=== PATIENT | female | born 1985 | race Two or more races ===

== ENCOUNTER 2019-01-20 14:44 | Emergency (ER) | payer BC ==
[2019-01-20] MEDS ORDERED: Clindamycin HCl 150 MG Cap PO ONE (14:45)
[2019-01-20 15:57] VITALS: BP 140/77; PULSE 90
--- NOTE | 2019-01-20 16:59 | EDM.PDOC ---
<Apolonia Fernandes - Last Filed: 01/20/19 18:29> ED HPI GENERAL MEDICAL PROBLEM - General Chief Complaint: Skin Complaint Stated Complaint: STAFF INFECTION NOT GOING AWAY Time Seen by Provider: 01/20/19 16:57 - Related Data Allergies Allergy/AdvReac Type Severity Reaction Status Date / Time amoxicillin Allergy Diarrhea Verified 01/20/19 15:44 latex Allergy Rash Verified 11/15/13 17:01 Home Meds: Home Meds Albuterol [Ventolin HFA] 2 puff INH Q4H PRN 09/03/13 [History] Acetaminophen [Tylenol Extra Strength] 1,000 mg PO Q8H PRN 11/15/13 [History] buPROPion [buPROPion XL] 150 mg PO DAILY 01/20/19 [History] buPROPion [buPROPion XL] 300 mg PO BEDTIME 01/20/19 [History] ED ROS GENERAL - Review of Systems Review Of Systems: ROS reveals no pertinent complaints other than HPI. ED EXAM, SKIN/RASH Exam: See Below Exam Limited By: No Limitations General Appearance: Alert, No Apparent Distress Skin: Rash (erythematous rash below the right ear and over the chest, both have areas of a previous boil that has been drained. There are some surrounding vesicles. ) Course - Vital Signs Last Recorded V/S: Last Vital Signs Temp 99.2 F 01/20/19 15:38 Pulse 90 01/20/19 15:38 Resp 18 01/20/19 15:38 BP 140/77 01/20/19 15:38 Pulse Ox 99 01/20/19 15:38 - Orders/Labs/Meds Orders: Active Orders 24 hr Category Date Time Status Peripheral IV Care [RC] . DIRECTED Care 01/20/19 18:26 Active Peripheral IV Insertion Adult [OM.PC] Stat Oth 01/20/19 18:26 Ordered Meds: Medications Discontinued Medications Generic Name Dose Route Start Last Admin Trade Name Freq PRN Reason Stop Dose Admin Clindamycin HCl Confirm 01/20/19 17:19 01/20/19 18:34 Cleocin Administered 01/20/19 17:20 Not Given Dose 600 mg .ROUTE .STK-MED ONE Clindamycin Phosphate 900 mg/ 106 mls @ 200 mls/hr 01/20/19 17:10 01/20/19 17 :40 Sodium Chloride IV 01/20/19 17:41 200 mls/hr ONETIME ONE Administration Sodium Chloride 10 ml 01/20/19 18:26 01/20/19 18:34 Saline Flush FLUSH 10 ml ASDIRECTED PRN Administration Keep Vein Open Departure - Departure Time of Disposition: 18:29 Disposition: Home, Self-Care 01 Condition: Fair Clinical Impression: Skin infection, bacterial - Discharge Information *PRESCRIPTION DRUG MONITORING PROGRAM REVIEWED*: Not Applicable *COPY OF PRESCRIPTION DRUG MONITORING REPORT IN PATIENT DANIELLE: Not Applicable Instructions: Antibiotic Medicine, Adult, [id number] Referrals: PCP,None [Ordering Only Provider] - Forms: ED Department Discharge Additional Instructions: Take clindamycin 300mg Take benadryl 25mg at bedtime for itching. May take zyrtec during the day for itching as it does not cause drowsiness. Apply mupirocin ointment to areas of infection, inside of the nostrils and also under finger nails. - My Orders Last 24 Hours: My Active Orders 01/20/19 18:26 Peripheral IV Care [RC] . DIRECTED Peripheral IV Insertion Adult [OM.PC] Stat - Assessment/Plan Last 24 Hours: My Active Orders 01/20/19 18:26 Peripheral IV Care [RC] . DIRECTED Peripheral IV Insertion Adult [OM.PC] Stat Assessment:: Assessment and Plan: Staph infection of the skin - Patient had her boils incised and drained by her PCP in clinic and culture yielded staph infection susceptible to Clindamycin and Doxycycline. - She was given Bactrim in clinic and believes the redness around the rash is getting worse. Discontinue bactrim. - She will receive IV Clindamycin 900mg Once in ED. - She will be sent home with PO Clindamycin 300mg daily. - She will also have a prescription for mupirocin to apply in nares and under the nails. <Perez Lainez - Last Filed: 01/20/19 18:57> ED HPI GENERAL MEDICAL PROBLEM - General Source of Information: Reports: Patient, RN, RN Notes Reviewed History Limitations: Reports: No Limitations - History of Present Illness INITIAL COMMENTS - FREE TEXT/NARRATIVE: Patient presents to ER with complaint of rash on right ear. She was told the rash was a staph infection of unknown origin. Bactrim topical was given and told it should clear up. The rash appeared on chest and continues to get larger. Rash appears reddened, with blisters and drainage. Patient states it is itchy and painful and the Bactrim is not clearing it up as was told, and appears to be spreading. Right ear and chest has dressing over areas for drainage. The patient states it is clear drainage Onset: Gradual Duration: Constant Location: Reports: Face (and ears) Quality: Reports: Ache Severity: Moderate Improves with: Reports: None Worsens with: Reports: None Associated Symptoms: Reports: No Other Symptoms Chest Pain Score (Numeric/FACES): 7 ED ROS GENERAL - Review of Systems Review Of Systems: ROS reveals no pertinent complaints other than HPI. Course - Orders/Labs/Meds Orders: Active Orders 24 hr Category Date Time Status Peripheral IV Care [RC] . DIRECTED Care 01/20/19 18:26 Active Peripheral IV Insertion Adult [OM.PC] Stat Oth 01/20/19 18:26 Ordered Meds: Medications Discontinued Medications Generic Name Dose Route Start Last Admin Trade Name [place] PRN Reason Stop Dose Admin Clindamycin HCl Confirm 01/20/19 17:19 01/20/19 18:34 Cleocin Administered 01/20/19 17:20 Not Given Dose 600 mg .ROUTE .STK-MED ONE Clindamycin Phosphate 900 mg/ 106 mls @ 200 mls/hr 01/20/19 17:10 01/20/19 17 :40 Sodium Chloride IV 01/20/19 17:41 200 mls/hr ONETIME ONE Administration Sodium Chloride 10 ml 01/20/19 18:26 01/20/19 18:34 Saline Flush FLUSH 10 ml ASDIRECTED PRN Administration Keep Vein Open - Re-Assessments/Exams Free Text/Narrative Re-Assessment/Exam: 01/20/19 18:56 I saw and evaluated the patient. Discussed with resident and agree with resident s findings and plan as documented in the residents note. - My Orders Last 24 Hours: My Active Orders 01/20/19 18:26 Peripheral IV Care [RC] . DIRECTED Peripheral IV Insertion Adult [OM.PC] Stat - Assessment/Plan Last 24 Hours: My Active Orders 01/20/19 18:26 Peripheral IV Care [RC] . DIRECTED Peripheral IV Insertion Adult [OM.PC] Stat
[2019-01-20] MEDS ORDERED: Clindamycin Phosphate 900 MG in Sodium Chloride 0.9% 100 ML IV ONE (17:10)
[2019-01-20] MEDS ORDERED: Clindamycin HCl 150 MG Cap ONE (17:19)
[2019-01-20] MEDS ORDERED: Sodium Chloride 0.9% 10 ML Syringe FLUSH PRN (18:26)
== END 2019-01-20 18:43 | disposition home or self-care (01) ==
LOC: DL.ED 14:44
DX: L08.9 Local infection of the skin and subcutaneous tissue, unspecified (principal); B96.89 Other specified bacterial agents as the cause of diseases classified elsewhere; Z88.1 Allergy status to other antibiotic agents; Z91.040 Latex allergy status; Z79.899 Other long term (current) drug therapy
CPT/HCPCS: 96365; 99282; J3490; J7050; A9270-GY

== ENCOUNTER 2019-10-27 14:28 | Emergency (ER) | payer BC ==
[2019-10-27 15:07] VITALS: PULSE 79
[2019-10-27 15:22] VITALS: BP 133/91
[2019-10-27] MEDS ORDERED: Ondansetron 4 MG/2 ML SDV IVPUSH ONE (15:48)
[2019-10-27] MEDS ORDERED: Sodium Chloride 0.9% 1,000 ML IV ONE (15:48)
--- NOTE | 2019-10-27 15:53 | EDM.PDOC ---
<Anthony Gaming M - Last Filed: 10/27/19 18:55> ED HPI GENERAL MEDICAL PROBLEM - General Chief Complaint: Abdominal Pain Stated Complaint: SHORTNESS OF BREATH, DYRIHEA, ABDOMINAL PAIN PT Time Seen by Provider: 10/27/19 15:40 Source of Information: Reports: Patient History Limitations: Reports: No Limitations - History of Present Illness INITIAL COMMENTS - FREE TEXT/NARRATIVE: This 34 yo female patient reports to the ED with diffuse abdominal pain, diarrhea and nausea. The patient reports her symptoms started on , but resolved after taking Imodium. The patient reports no loose bowel movements on Tuesday, but she has had 7 loose bowel movements today. The patient reports she did have eggs for breakfast today. Onset Date: 10/25/19 Duration: Intermittent Location: Reports: Abdomen (RUQ radiating throughout abdomen) Quality: Reports: Ache, Sharp, Stabbing Severity: Moderate Improves with: Reports: None Worsens with: Reports: None Context: Reports: Other Associated Symptoms: Reports: Nausea/Vomiting Treatments CAR WASHER: Reports: Other Medication(s) abdominal Pain Score (Numeric/FACES): 9 - Related Data Allergies Allergy/AdvReac Type Severity Reaction Status Date / Time amoxicillin Allergy Diarrhea Verified 10/27/19 15:22 latex Allergy Rash Verified 10/27/19 15:22 Home Meds: Home Meds Albuterol [Ventolin HFA] 2 puff INH Q4H PRN 09/03/13 [History] Acetaminophen [Tylenol Extra Strength] 1,000 mg PO Q8H PRN 11/15/13 [History] buPROPion [buPROPion XL] 150 mg PO DAILY 01/20/19 [History] buPROPion [buPROPion XL] 350 mg PO DAILY 01/20/19 [History] Loperamide [Imodium] 4 mg PO Q6H PRN 10/27/19 [History] Past Medical History Cardiovascular History: Reports: None Respiratory History: Reports: Asthma Gastrointestinal History: Reports: None Genitourinary History: Reports: Pyelonephritis, UTI, Recurrent RECYCLABLE PRODUCTS SORTER History: Reports: Polycystic Ovaries, Musculoskeletal History: Reports: None Neurological History: Reports: None Psychiatric History: Reports: Anxiety, Other (See Below) Other Psychiatric History: anxiety - medication helps Endocrine/Metabolic History: Reports: None Hematologic History: Reports: None Immunologic History: Reports: None Oncologic (Cancer) History: Reports: None Dermatologic History: Reports: Other (See Below) Other Dermatologic History: contact dermatitis - Infectious Disease History Infectious Disease History: Reports: None - Past Surgical History HEENT Surgical History: Reports: Tonsillectomy Cardiovascular Surgical History: Reports: None Respiratory Surgical History: Reports: None GI Surgical History: Reports: None Female Surgical History: Reports: None Musculoskeletal Surgical History: Reports: None Social & Family History - Family History Family Medical History: Noncontributory - Tobacco Use Smoking Status *Q: Former Smoker Used Tobacco, but Quit: Yes Month/Year Tobacco Last Used: March 2014 Second Hand Smoke Exposure: No - Caffeine Use Caffeine Use: Reports: Energy Drinks - Recreational Drug Use Recreational Drug Use: Yes Recreational Drug Type: Reports: Marijuana/Hashish Recreational Drug Use Frequency: Socially ED ROS GENERAL - Review of Systems Review Of Systems: Comprehensive ROS is negative, except as noted in HPI. ED EXAM, GI/ABD - Physical Exam Exam: See Below Exam Limited By: No Limitations General Appearance: Alert, WD/WN, Moderate Distress, Obese Eyes: Bilateral: Normal Appearance, EOMI Ears: Normal External Exam, Normal Canal, Hearing Grossly Normal, Normal TMs Nose: Normal Inspection, Normal Mucosa, No Blood Throat/Mouth: Normal Inspection, Normal Lips, Normal Teeth, Normal Gums, Normal Oropharynx, Normal Voice, No Airway Compromise Head: Atraumatic, Normocephalic Neck: Normal Inspection, Supple, Non-Tender, Full Range of Motion Respiratory/Chest: No Respiratory Distress, Lungs Clear, Normal Breath Sounds, No Accessory Muscle Use, Chest Non-Tender Cardiovascular: Normal Peripheral Pulses, Regular Rate, Rhythm, No Edema, No Gallop, No JVD, No Murmur, No Rub GI/Abdominal Exam: Normal Bowel Sounds, No Organomegaly, No Distention, No Abnormal Bruit, No Mass, Pelvis Stable, Tender (Diffuse (RUQ worse)) (Female) Exam: Deferred Rectal (Female) Exam: Deferred Back Exam: Normal Inspection, Full Range of Motion, NT Extremities: Normal Inspection, Normal Range of Motion, Non-Tender, Normal Capillary Refill, No Pedal Edema Neurological: Alert, Oriented, CN II-XII Intact, Normal Cognition, Normal Gait, Normal Reflexes, No Motor/Sensory Deficits Psychiatric: Normal Affect, Normal Mood Skin Exam: Warm, Dry, Intact, Normal Color, No Rash Lymphatic: No Adenopathy Departure - Departure Disposition: Home, Self-Care 01 Clinical Impression: Fatty liver Abdominal pain Qualifiers: Abdominal location: right upper quadrant Qualified Code(s): R10.11 - Right upper quadrant pain - Discharge Information Instructions: Abdominal Pain, Adult, [id number], Nonalcoholic Fatty Liver Disease Diet, Adult Forms: ED Department Discharge Additional Instructions: Follow up with your primary care provider for gallbladder ultrasound Return to the ER with any worsening of problems Sepsis Event Note (ED) - Evaluation Sepsis Screening Result: No Definite Risk <Kalyani Olivo - Last Filed: 10/27/19 19:37> Course - Vital Signs Last Recorded V/S: Last Vital Signs Temp 98.5 F 10/27/19 15:05 Pulse 79 10/27/19 15:05 Resp 20 10/27/19 15:05 BP 133/91 H 10/27/19 15:22 Pulse Ox 100 10/27/19 15:05 - Orders/Labs/Meds Orders: Active Orders 24 hr Category Date Time Status CULTURE BLOOD [BC] Stat Lab 10/27/19 16:04 Results Labs: Laboratory Tests 10/27/19 10/27/19 10/27/19 Range/Units 15:57 16:04 16:04 WBC 7.2 (5.0-10.0) 10^3/uL RBC 4.65 (4.2-5.4) 10^6/uL Hgb 14.0 D (12.0-16.0) g/dL Hct 41.1 (37.0-47.0) % MCV 88.4 D (80-100) fL MCH 30.1 (27.0-34.0) pg MCHC 34.1 (33.0-35.0) g/dL Plt Count 336 (150-450) 10^3/uL Neut % (Auto) 74.5 (42.2-75.2) % Lymph % (Auto) 15.0 L (20.5-50.1) % [place] % (Auto) 7.4 (2-8) % Eos % (Auto) 2.8 (1.0-3.0) % Baso % (Auto) 0.3 (0.0-1.0) % Sodium 142 (136-145) mmol/L Potassium 3.8 (3.5-5.1) mmol/L Chloride 104 (98-107) mmol/L Carbon Dioxide 23 (21-32) mmol/L Anion Gap 18.8 H (7-13) mEq/L BUN 11 (7-18) mg/dL Creatinine 0.79 (0.55-1.02) mg/dL Est Cr Clr Drug Dosing 102.17 mL/min Estimated GFR (MDRD) > 60 BUN/Creatinine Ratio 13.9 (No establ ref range) Glucose 97 (74-99) mg/dL Lactic Acid (0.4-2.0) mmol/L Calcium 9.1 (8.5-10.1) mg/dL Total Bilirubin 0.5 (0.2-1.0) mg/dL AST 51 H (15-37) U/L ALT 89 H (14-59) U/L Alkaline Phosphatase 79 (46-116) U/L Total Protein 8.1 (6.4-8.2) g/dL Albumin 4.0 (3.4-5.0) g/dL Globulin 4.1 Albumin/Globulin Ratio 1.0 Amylase 38 (25-115) U/L Lipase 137 (73-393) U/L Urine Color (YELLOW) Urine Appearance (CLEAR) Urine pH (5.0-9.0) Ur Specific [place] (1.005-1.030) Urine Protein (NEGATIVE) Urine Glucose (UA) (NEGATIVE) Urine Ketones (NEGATIVE) Urine Occult Blood (NEGATIVE) Urine Nitrite (NEGATIVE) Urine Bilirubin (NEGATIVE) Urine Urobilinogen (0.2-1.0) mg/dL Ur Leukocyte Esterase (NEGATIVE) Urine RBC /HPF Urine WBC (0-5/HPF) /HPF Ur Epithelial Cells (NOT SEEN) /HPF Urine Bacteria (0-FEW/HPF) /HPF Urine HCG, Qual Urine Opiates Screen (NEGATIVE) Ur Oxycodone Screen (NEGATIVE) Urine Methadone Screen (NEGATIVE) Ur Barbiturates Screen (NEGATIVE) U Tricyclic Antidepress (NEGATIVE) Ur Phencyclidine Scrn (NEGATIVE) Ur Amphetamine Screen (NEGATIVE) U Methamphetamines Scrn (NEGATIVE) Urine MDMA Screen (NEGATIVE) U Benzodiazepines Scrn (NEGATIVE) Urine Cocaine Screen (NEGATIVE) U Marijuana (THC) Screen (NEGATIVE) COVID-19 (CHLOE) Negative (NEGATIVE) 10/27/19 10/27/19 10/27/19 Range/Units 16:04 16:21 16:21 WBC (5.0-10.0) 10^3/uL RBC (4.2-5.4) 10^6/uL Hgb (12.0-16.0) g/dL Hct (37.0-47.0) % MCV (80-100) fL MCH (27.0-34.0) pg MCHC (33.0-35.0) g/dL Plt Count (150-450) 10^3/uL Neut % (Auto) (42.2-75.2) % Lymph % (Auto) (20.5-50.1) % [place] % (Auto) (2-8) % Eos % (Auto) (1.0-3.0) % Baso % (Auto) (0.0-1.0) % Sodium (136-145) mmol/L Potassium (3.5-5.1) mmol/L Chloride (98-107) mmol/L Carbon Dioxide (21-32) mmol/L Anion Gap (7-13) mEq/L BUN (7-18) mg/dL Creatinine (0.55-1.02) mg/dL Est Cr Clr Drug Dosing mL/min Estimated GFR (MDRD) BUN/Creatinine Ratio (No establ ref range) Glucose (74-99) mg/dL Lactic Acid 1.3 (0.4-2.0) mmol/L Calcium (8.5-10.1) mg/dL Total Bilirubin (0.2-1.0) mg/dL AST (15-37) U/L ALT (14-59) U/L Alkaline Phosphatase (46-116) U/L Total Protein (6.4-8.2) g/dL Albumin (3.4-5.0) g/dL Globulin Albumin/Globulin Ratio Amylase (25-115) U/L Lipase (73-393) U/L Urine Color Yellow (YELLOW) Urine Appearance Slightly cloudy (CLEAR) Urine pH 7.0 (5.0-9.0) Ur Specific [place] 1.015 (1.005-1.030) Urine Protein Negative (NEGATIVE) Urine Glucose (UA) Negative (NEGATIVE) Urine Ketones Negative (NEGATIVE) Urine Occult Blood Small H (NEGATIVE) Urine Nitrite Negative (NEGATIVE) Urine Bilirubin Negative (NEGATIVE) Urine Urobilinogen 0.2 (0.2-1.0) mg/dL Ur Leukocyte Esterase Negative (NEGATIVE) Urine RBC 0-5 /HPF Urine WBC 0-5 (0-5/HPF) /HPF Ur Epithelial Cells Moderate H (NOT SEEN) /HPF Urine Bacteria Few (0-FEW/HPF) /HPF Urine HCG, Qual Urine Opiates Screen Negative (NEGATIVE) Ur Oxycodone Screen Negative (NEGATIVE) Urine Methadone Screen Negative (NEGATIVE) Ur Barbiturates Screen Negative (NEGATIVE) U Tricyclic Antidepress Negative (NEGATIVE) Ur Phencyclidine Scrn Negative (NEGATIVE) Ur Amphetamine Screen Negative (NEGATIVE) U Methamphetamines Scrn Negative (NEGATIVE) Urine MDMA Screen Negative (NEGATIVE) U Benzodiazepines Scrn Negative (NEGATIVE) Urine Cocaine Screen Negative (NEGATIVE) U Marijuana (THC) Screen Negative (NEGATIVE) COVID-19 (CHLOE) (NEGATIVE) 10/27/19 Range/Units 16:21 WBC (5.0-10.0) 10^3/uL RBC (4.2-5.4) 10^6/uL Hgb (12.0-16.0) g/dL Hct (37.0-47.0) % MCV (80-100) fL MCH (27.0-34.0) pg MCHC (33.0-35.0) g/dL Plt Count (150-450) 10^3/uL Neut % (Auto) (42.2-75.2) % Lymph % (Auto) (20.5-50.1) % [place] % (Auto) (2-8) % Eos % (Auto) (1.0-3.0) % Baso % (Auto) (0.0-1.0) % Sodium (136-145) mmol/L Potassium (3.5-5.1) mmol/L Chloride (98-107) mmol/L Carbon Dioxide (21-32) mmol/L Anion Gap (7-13) mEq/L BUN (7-18) mg/dL Creatinine (0.55-1.02) mg/dL Est Cr Clr Drug Dosing mL/min Estimated GFR (MDRD) BUN/Creatinine Ratio (No establ ref range) Glucose (74-99) mg/dL Lactic Acid (0.4-2.0) mmol/L Calcium (8.5-10.1) mg/dL Total Bilirubin (0.2-1.0) mg/dL AST (15-37) U/L ALT (14-59) U/L Alkaline Phosphatase (46-116) U/L Total Protein (6.4-8.2) g/dL Albumin (3.4-5.0) g/dL Globulin Albumin/Globulin Ratio Amylase (25-115) U/L Lipase (73-393) U/L Urine Color (YELLOW) Urine Appearance (CLEAR) Urine pH (5.0-9.0) Ur Specific [place] (1.005-1.030) Urine Protein (NEGATIVE) Urine Glucose (UA) (NEGATIVE) Urine Ketones (NEGATIVE) Urine Occult Blood (NEGATIVE) Urine Nitrite (NEGATIVE) Urine Bilirubin (NEGATIVE) Urine Urobilinogen (0.2-1.0) mg/dL Ur Leukocyte Esterase (NEGATIVE) Urine RBC /HPF Urine WBC (0-5/HPF) /HPF Ur Epithelial Cells (NOT SEEN) /HPF Urine Bacteria (0-FEW/HPF) /HPF Urine HCG, Qual Negative Urine Opiates Screen (NEGATIVE) Ur Oxycodone Screen (NEGATIVE) Urine Methadone Screen (NEGATIVE) Ur Barbiturates Screen (NEGATIVE) U Tricyclic Antidepress (NEGATIVE) Ur Phencyclidine Scrn (NEGATIVE) Ur Amphetamine Screen (NEGATIVE) U Methamphetamines Scrn (NEGATIVE) Urine MDMA Screen (NEGATIVE) U Benzodiazepines Scrn (NEGATIVE) Urine Cocaine Screen (NEGATIVE) U Marijuana (THC) Screen (NEGATIVE) COVID-19 ([facility]LOE) (NEGATIVE) Meds: Medications Discontinued Medications Generic Name Dose Route Start Last Admin Trade Name Freq PRN Reason Stop Dose Admin Sodium Chloride 1,000 mls @ 999 mls/hr 10/27/19 15:48 10/27/19 16:03 Normal Saline IV 10/27/19 16:48 999 mls/hr .BOLUS ONE Administration Iopamidol 100 ml 10/27/19 18:00 10/27/19 18:23 Isovue-300 (61%) IVPUSH 10/27/19 18:01 100 ml ONETIME ONE Administration Ondansetron HCl 4 mg 10/27/19 15:48 10/27/19 16:04 Zofran IVPUSH 10/27/19 15:49 4 mg ONETIME ONE Administration - Radiology Interpretation Free Text/Narrative:: CT Abdomen/Pelvis with contrast: PROCEDURE INFORMATION: Exam: CT Abdomen And Pelvis With Contrast Exam date and time: 10/27/2019 6:42 PM Age: 34 years old Clinical indication: Other: Ruq increased pain; Additional info: Abdominal pain (wbc - 7.2) TECHNIQUE: Imaging protocol: Computed tomography of the abdomen and pelvis with intravenous contrast. Radiation optimization: All CT scans at this facility use at least one of these dose optimization techniques: automated exposure control; mA and/or kV adjustment per patient size (includes targeted exams where dose is matched to clinical indication); or iterative reconstruction. Contrast material: [id number]; Contrast volume: 100 ml; Contrast route: INTRAVENOUS (IV); COMPARISON: CT ABDOMEN/PELVIS 06/17/2011 8:50 PM FINDINGS: Lungs: The lung bases are clear. There are no pleural effusions. Liver: The liver is enlarged, measuring 21.9 cm in the craniocaudad dimension. There is diffuse fatty infiltration of the liver. No focal hepatic lesions are identified. Gallbladder and bile ducts: The gallbladder is not distended. There is no biliary ductal dilatation. Pancreas: The pancreas is within normal limits. Spleen: The spleen is normal in size. Adrenals: The adrenal glands are normal in appearance. Kidneys and ureters: Neither kidney shows evidence of hydronephrosis or renal stone. The ureters are normal in caliber. No intraluminal filling defects are identified. Stomach and bowel: The stomach is not distended. No pathologically dilated small bowel loops are identified. There is no evidence of colonic wall thickening or pericolonic in flammation. Appendix: There is a normal appendix in the right lower quadrant. Intraperitoneal space: There is no free air or free fluid in the abdomen or pelvis. Vasculature: The abdominal aorta is normal in caliber. The celiac axis, SMA and SAMIA are patent. Lymph nodes: There are prominent periportal lymph nodes. Otherwise, no pathologically enlarged lymph nodes are identified. Bladder: The urinary bladder appears normal. Reproductive: There is an IUD in the uterus. The left ovary is mildly enlarged, measuring 4.7 x 4.0 x 3.8 cm. The right ovary measures 4.2 x 2.2 x 1.8 cm. Bones/joints: There is normal alignment in the lumbar spine. There is moderate degenerative disc disease at L4-L5 and L5-S1, more than typically seen for a patient of this age. Soft tissues: Within normal limits. IMPRESSION: 1. Enlarged fatty liver. Fatty infiltration can be due to benign steatosis versus alcoholic or non alcoholic steatohepatitis. There are prominent periportal lymph nodes noted. 2. Unremarkable CT appearance of the gallbladder. 3. Mildly enlarged left ovary. The pelvic organs are otherwise grossly unremarkable. Thank you for allowing us to participate in the care of your patient. Dictated and Authenticated by: Orin Holliday MD 10/27/2019 7:10 PM Central Time ([place] & [place]) See Rad report Departure - Departure Time of Disposition: 19:37 Condition: Fair - Discharge Information *PRESCRIPTION DRUG MONITORING PROGRAM REVIEWED*: No *COPY OF PRESCRIPTION DRUG MONITORING REPORT IN PATIENT DANIELLE: No Sepsis Event Note (ED) - Focused Exam Vital Signs: Vital Signs Temp Pulse Resp BP Pulse Ox 10/27/19 15:22 133/91 H 10/27/19 15:05 98.5 F 79 20 140/101 H 100
[2019-10-27 17:00] LABS: ANION GAP 18.8 mEq/L (7-13); CHLORIDE,CL 104 mmol/L (98-107); SODIUM,NA 142 mmol/L (136-145)
[2019-10-27] MEDS ORDERED: Iopamidol 612 MG/ML 100 ML Bottle IVPUSH ONE (18:00)
--- NOTE | 2019-10-27 19:11 | CT ---
PROCEDURE INFORMATION: Exam: CT Abdomen And Pelvis With Contrast Exam date and time: 10/27/2019 6:42 PM Age: 34 years old Clinical indication: Other: Ruq increased pain; Additional info: Abdominal pain (wbc - 7.2) TECHNIQUE: Imaging protocol: Computed tomography of the abdomen and pelvis with intravenous contrast. Radiation optimization: All CT scans at this facility use at least one of these dose optimization techniques: automated exposure control; mA and/or kV adjustment per patient size (includes targeted exams where dose is matched to clinical indication); or iterative reconstruction. Contrast material: [id number]; Contrast volume: 100 ml; Contrast route: INTRAVENOUS (IV); COMPARISON: CT ABDOMEN/PELVIS 06/17/2011 8:50 PM FINDINGS: Lungs: The lung bases are clear. There are no pleural effusions. Liver: The liver is enlarged, measuring 21.9 cm in the craniocaudad dimension. There is diffuse fatty infiltration of the liver. No focal hepatic lesions are identified. Gallbladder and bile ducts: The gallbladder is not distended. There is no biliary ductal dilatation. Pancreas: The pancreas is within normal limits. Spleen: The spleen is normal in size. Adrenals: The adrenal glands are normal in appearance. Kidneys and ureters: Neither kidney shows evidence of hydronephrosis or renal stone. The ureters are normal in caliber. No intraluminal filling defects are identified. Stomach and bowel: The stomach is not distended. No pathologically dilated small bowel loops are identified. There is no evidence of colonic wall thickening or pericolonic inflammation. Appendix: There is a normal appendix in the right lower quadrant. Intraperitoneal space: There is no free air or free fluid in the abdomen or pelvis. Vasculature: The abdominal aorta is normal in caliber. The celiac axis, SMA and SAMIA are patent. Lymph nodes: There are prominent periportal lymph nodes. Otherwise, no pathologically enlarged lymph nodes are identified. Bladder: The urinary bladder appears normal. Reproductive: There is an IUD in the uterus. The left ovary is mildly enlarged, measuring 4.7 x 4.0 x 3.8 cm. The right ovary measures 4.2 x 2.2 x 1.8 cm. Bones/joints: There is normal alignment in the lumbar spine. There is moderate degenerative disc disease at L4-L5 and L5-S1, more than typically seen for a patient of this age. Soft tissues: Within normal limits. IMPRESSION: 1. Enlarged fatty liver. Fatty infiltration can be due to benign steatosis versus alcoholic or non alcoholic steatohepatitis. There are prominent periportal lymph nodes noted. 2. Unremarkable CT appearance of the gallbladder. 3. Mildly enlarged left ovary. The pelvic organs are otherwise grossly unremarkable.
== END 2019-10-27 19:36 | disposition home or self-care (01) ==
LOC: DL.ED 14:28
DX: K76.0 Fatty (change of) liver, not elsewhere classified (principal); J45.909 Unspecified asthma, uncomplicated; F41.9 Anxiety disorder, unspecified; Z20.828 Contact with and (suspected) exposure to other viral communicable diseases; Z88.1 Allergy status to other antibiotic agents; Z91.040 Latex allergy status; Z79.899 Other long term (current) drug therapy; Z87.891 Personal history of nicotine dependence
CPT/HCPCS: 36415; 74177; 80053; 80305; 81001; 81025; 82150; 83605; 83690; 85025; 87040; 87635; 96361; 96374; 99284; J2405; J7030; Q9967; U0002